=== PATIENT | female | born 1960 | race Two or more races ===

== ENCOUNTER 2022-08-25 10:56 | Emergency (ER) | payer OTHER ==
[~2022-08-25] VITALS: Ht 170.2 cm; Wt 68.0 kg
[~2022-08-25 10:56] MED LIST: CYCL10 PO; OXYACE5T PO
[2022-08-25 11:16] VITALS: BP 177/110
[2022-08-25] MEDS ORDERED: Vistaril50 MG PO (12:49)
== END 2022-08-25 13:00 | disposition home or self-care (01) ==
LOC: ER 10:56
DX: F41.9 Anxiety disorder, unspecified (principal); I10 Essential (primary) hypertension; F17.200 Nicotine dependence, unspecified, uncomplicated
CPT/HCPCS: 99283